=== PATIENT | male | born 1970 | race Two or more races ===

== ENCOUNTER 2016-08-26 04:23 | Emergency (ER) | payer SELFPAY ==
--- NOTE | 2016-08-26 06:57 | ER Document Report ---
ED General - General Information source: Patient TRAVEL OUTSIDE OF THE [place] IN LAST 30 DAYS: No - HPI Onset: Other - midnight Onset/Duration: Better Similar symptoms previously: Yes <BEATRICE BAGLEY - Last Filed: 08/26/16 07:32> <YONG MARTINEZ - Last Filed: 08/26/16 10:05> - General Chief Complaint: Dizziness Stated Complaint: NUMBNESS IN ARMS Notes: Patient is a 46-year-old male that presents to the emergency department today with complaints of an episode over night where he felt generally weak, numb, and dizzy. Patient describes feeling like he was nearly going to pass out with an elevated heart rate. Patient states he has not been able to sleep for the last few days, only a few hours a day. Patient states there is no reason why he cannot sleep, he just has been unable to fall asleep. Patient states he had a similar episode like this in the past approximately 2-3 months ago however this episode only lasted for approximately 2 hours. Patient states the episode today lasted from midnight until arrival here, approximately 6 hours. Patient denies chest pain, shortness of breath, abdominal pain, blood in his stool/urine , PE/DVT in the past, fevers, or cough. 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 denies: Fever EENT: No symptoms reported Cardiovascular: See HPI, Dizziness, Other - near-syncope. denies: Chest pain Respiratory: denies: Cough, Short of breath Gastrointestinal: See HPI, Vomiting. denies: Abdominal pain Genitourinary: No symptoms reported Male Genitourinary: No symptoms reported Musculoskeletal: No symptoms reported Skin: No symptoms reported Hematologic/Lymphatic: No symptoms reported Neurological/Psychological: No symptoms reported -: Yes All other systems reviewed and negative <BEATRICE BAGLEY - Last Filed: 08/26/16 07:32> Physical Exam <BEATRICE BAGLEY - Last Filed: 08/26/16 07:32> <YONG MARTINEZ - Last Filed: 08/26/16 10:05> - Vital signs Vitals: Temp Pulse Resp BP Pulse Ox 98.1 F 93 20 171/93 H 98 08/26/16 04:28 08/26/16 04:28 08/26/16 04:28 08/26/16 04:28 08/26/16 04:28 - Notes Notes: Physical Exam: General: Alert, appears well. HEENT: Normocephalic. Atraumatic. PERRL. Extraocular movements intact. Oropharynx clear. Neck: Supple. Non-tender. Respiratory: No respiratory distress. Clear and equal breath sounds bilaterally. Cardiovascular: Regular rate and rhythm, 2/6 systolic murmur over the apex. Abdominal: Normal Inspection. Non-tender. No distension. Normal Bowel Sounds. Back: Non-tender. No deformity or step off. Extremities: Moves all four extremities. Upper extremities: Normal inspection. Normal ROM. Lower extremities: Normal inspection. Non-tender. No edema. Normal ROM. Neurological: Normal cognition. AAOx4. Normal speech. Psychological: Normal affect. Normal Mood. Skin: Warm. Dry. Normal color. (YUDIBEATRICE) Course - Laboratory Result Diagrams: 08/26/16 07:00 08/26/16 07:00 <YUDIBEATRICE - Last Filed: 08/26/16 07:32> - Laboratory Result Diagrams: 08/26/16 07:00 08/26/16 07:00 <YONG MARTINEZ - Last Filed: 08/26/16 10:05> - Re-evaluation Re-evalutation: 08/26/16 09:53 Patient presents with episode of palpitations starting last night shortly after he laid down for sleep. Patient indicates it lasted all through the night. He said that he didn't have any shortness of breath but felt like maybe breathing a little faster than normal. The patient said he didn't have any chest pain with this just that his heart was racing. He felt lightheaded like he might pass out. All over. The patient has similar episode to this a couple months ago that lasted only 2 hours and went away. He did not seek medical attention for this. The patient currently is symptom free on arrival in emergency department. His exam is unremarkable. Medical decision making: Patient with episode of palpitations and lightheadedness. His exam is unremarkable. He does not use tobacco. No history of hypertension or hypercholesterolemia. Heart Score = 0. Patient low risk for major adverse coronary event. Patient low risk by well's criteria for PE and d-dimer negative area I spoke with Dr. Shah, [employer] [employer] consumer recruiter, who indicates that he will see patient in clinic for early follow-up and likely 30 day event monitor. I have explained this to patient and he acknowledges understanding and agrees with the plan. (YONG MARTINEZ) - Vital Signs Vital signs: Temp Pulse Resp BP Pulse Ox 98.1 F 74 20 143/87 H 98 08/26/16 04:28 08/26/16 08:38 08/26/16 09:01 08/26/16 09:01 08/26/16 09:01 - Laboratory Laboratory results interpreted by me: 08/26/16 07:00 Plt Count 143 L - EKG Interpretation by Me Additional EKG results interpreted by me: 08/26/16 09:58 Heart rate 80, normal sinus rhythm, normal axis, normal intervals, no ST elevations, narrow Q waves in leads V1 and V2, as interpreted by me. No old for comparison. (YONG MARTINEZ) Discharge <BEATRICE BAGLEY - Last Filed: 08/26/16 07:32> <YONG MARTINEZ - Last Filed: 08/26/16 10:05> - Discharge Clinical Impression: Palpitations, Lightheadedness Condition: Stable Disposition: HOME, SELF-CARE Instructions: Dizziness (OM) Additional Instructions: You can try Tylenol PM or melatonin for sleep regulation. Dr. Shah, the [facility], will see you in his clinic in the next few days for further cardiac evaluation. Please call him for appointment time - [phone]. Return to emergency department for chest pain, difficulty breathing, persistent palpitations, passing out episodes, or any other worsening or concerning symptoms. Palpitations (Irregular/Rapid Heartrate) Irregular or rapid heartbeat is called "palpitation." To diagnose the cause of palpitation, we have to "catch it in the act" with an EKG. Sinus Tachycardia: This is a rapid (but NORMAL) rhythm that can be due to fever, pain, anxiety, lack of sleep, over-exertion, or drugs. Cold medications, caffeine, and diet pills are particularly likely to cause tachycardia. Usually , all that's required is rest, reassurance, and avoiding caffeine, alcohol, nicotine, and unnecessary medicines. Paroxysmal Atrial Tachycardia (PAT): This abnormally rapid heartbeat is caused by a "short circuit" in the electrical system of the heart. It is not dangerous, unless other heart disease is present. These attacks of PAT may occur occasionally for years. Medication is available for treatment. Paroxysmal Atrial Fibrillation or Atrial Flutter: This is irregular electrical activity in the upper heart chamber. These abnormal rhythms often occur with valve disease or in hearts damaged by hardening of the arteries. These rhythms usually require further testing, for example a cardiac echo. Premature Beats: Extra beats occur more commonly after caffeine, nicotine , alcohol, cold pills, diet pills. Emotional stress or fatigue also provoke them. Extra beats are only dangerous when heart disease is present. They usually need no treatment. If they're frequent, or if evidence of heart disease develops, medication can be given to suppress them. If we were unable to "catch" the palpitations on EKG, you should try to get an EKG immediately if the symptoms begin again. Contact the physician at once if you develop persistent lightheadedness, shortness of breath, chest pain , or swelling of the ankles. Forms: Return to Work Referrals: ALMA PETIT MD [ACTIVE STAFF] - Follow up tomorrow (Call [phone], mention that you were seen here in the Emergency Department and that Dr. Shah had requested you call that number for appointment time to be seen in clinic for palpitations and near-syncope.) Print Language: Urdu Scribe Attestation: 08/26/16 10:05 I personally performed the services described in the documentation, reviewed and edited the documentation which was dictated to the scribe in my presence, and it accurately records my words and actions. (YONG MARTINEZ) Scribe Documentation - Scribe Written by Placido:: Placido Corbin, 08/26/2016 0739 acting as scribe for :: [place] <BEATRICE BAGLEY - Last Filed: 08/26/16 07:32>
[2016-08-26 07:20] LABS: ABSOLUTE LYMPHOCYTES (AUTO) 1.5 10^3/uL (0.5-4.7); ABSOLUTE MONOCYTES (AUTO) 0.6 10^3/uL (0.1-1.4); ABSOLUTE NEUT (AUTO) 5.4 10^3/uL (1.7-8.2); BASOPHILS % (AUTO) 0.5 % (0-2); EOSINOPHILS % (AUTO) 0.4 % (0-6); HEMATOCRIT 42.9 % (37.9-51.0); HEMOGLOBIN 14.8 g/dL (13.5-17.0); HGB HCT DIFFERENCE 1.5; LYMPHOCYTES % (AUTO) 19.6 % (13-45); MEAN CORPUSCULAR HEMOGLOBIN 29.9 pg (27.0-33.4); MEAN CORPUSCULAR HGB CONC 34.4 g/dL (32.0-36.0); MEAN CORPUSCULAR VOLUME 87 fl (80-97); MONOCYTES % (AUTO) 8.2 % (3-13); RED BLOOD COUNT 4.94 10^6/uL (4.35-5.55); RED CELL DISTRIBUTION WIDTH 12.7 % (11.5-14.0); SEGMENTED NEUTROPHILS % (AUTO) 71.3 % (42-78); WHITE BLOOD COUNT 7.5 10^3/uL (4.0-10.5)
[2016-08-26 07:40] LABS: ANION GAP 14 (5-19); BLOOD UREA NITROGEN 8 mg/dL (7-20); CALCIUM 9.4 mg/dL (8.4-10.2); CARBON DIOXIDE 28 mmol/L (22-30); CHLORIDE 100 mmol/L (98-107); GLUCOSE 96 mg/dL (75-110); POTASSIUM 3.9 mmol/L (3.6-5.0); SODIUM 141.6 mmol/L (137-145)
[2016-08-26 07:43] LABS: ALCOHOL < 10 mg/dL (NONE DETECTED)
--- NOTE | 2016-08-26 08:31 | EKG REPORT ---
SEVERITY:- ABNORMAL ECG - SINUS RHYTHM PROBABLE ANTEROSEPTAL INFARCT, AGE INDETERM : Confirmed by: Wily An MD 26-Aug-2016 08:31:14
[2016-08-26 10:17] VITALS: BP 145/92
== END 2016-08-26 10:17 | disposition home or self-care (01) ==
LOC: ER 04:23
DX: R00.2 Palpitations (principal); R42 Dizziness and giddiness; R20.0 Anesthesia of skin
CPT/HCPCS: 36415; 71020; 80048; 80307; 84484; 85025; 85379; 93005; 93010; 99285

== ENCOUNTER 2016-09-20 15:15 | Emergency (ER) | payer SELFPAY ==
[2016-09-20] MEDS ORDERED: MECLIZINE HCL 25 MG TABLET PO ONE (15:34)
[2016-09-20] MEDS ORDERED: DEXTROSE 5%-LACTATED RINGERS 1,000 ML IV ONE (15:35)
--- NOTE | 2016-09-20 15:41 | ER Document Report ---
ED Dizziness/Weakness - General Mode of Arrival: Medic Information source: Patient TRAVEL OUTSIDE OF THE [place] IN LAST 30 DAYS: No - HPI Patient complains to provider of: Dizziness Associated symptoms: Other - See above <DALLAS SERRANO - Last Filed: 09/20/16 15:49> <LYNNE CEJA - Last Filed: 09/20/16 17:27> - General Chief Complaint: Dizziness Stated Complaint: dizziness Time Seen by Provider: 09/20/16 15:20 Notes: Patient is a 46 year old male who presents to the emergency department complaining of dizziness onset at 1200 today. Patient reports that he was driving when he felt dizzy, his vision darkened, he experienced ringing in his ears, and throbbing in the back of his head. Patient states that he pulled over and went to [facility] where they had him turn his head which caused the dizziness to worsen, he was not given medication and was sent to the ED via EMS. Patient reports he is feeling better now. Patient was seen at this facility for inability to sleep and numbness a few weeks ago and was told to follow up with a plaster block layer which he did not do because he felt normal again. Per nurse, patient reported that he is a heavy alcohol drinker and he stopped drinking yesterday. (DALLAS SERRANO) - Related Data Allergies/Adverse Reactions: No Known Allergies Allergy (Unverified 08/26/16 04:28) Past Medical History - General Information source: Patient - Social History Smoking Status: Never Smoker Frequency of alcohol use: Heavy Family History: Reviewed & Not Pertinent Musculoskeltal Medical History: Reports Hx Gout - Immunizations Hx Diphtheria, Pertussis, Tetanus Vaccination: Yes <DALLAS SERRANO - Last Filed: 09/20/16 15:49> Review of Systems - Review of Systems Constitutional: No symptoms reported EENT: See HPI, Blurred vision - darkening, Other - ringing ears Cardiovascular: See HPI, Dizziness Respiratory: No symptoms reported Gastrointestinal: No symptoms reported Genitourinary: No symptoms reported Male Genitourinary: No symptoms reported Musculoskeletal: No symptoms reported Skin: No symptoms reported Hematologic/Lymphatic: No symptoms reported Neurological/Psychological: See HPI, Headaches -: Yes All other systems reviewed and negative <DALLAS SERRANO - Last Filed: 09/20/16 15:49> Physical Exam - Vital signs Interpretation: Normal - General General appearance: Appears well, Alert - HEENT Head: Normocephalic, Atraumatic - Respiratory Respiratory status: No respiratory distress Chest status: Nontender Breath sounds: Wheezing - mild Chest palpation: Normal - Cardiovascular Rhythm: Regular Heart sounds: Normal auscultation Murmur: No - Back Back: Normal, Nontender - Extremities General upper extremity: Normal inspection General lower extremity: Normal inspection - Neurological Neuro grossly intact: Yes Cognition: Normal Orientation: AAOx4 [place] Coma Scale Eye Opening: Spontaneous Jomar Coma Scale Verbal: Oriented Jomar Coma Scale Motor: Obeys Commands Jomar Coma Scale Total: 15 Speech: Normal - Psychological Associated symptoms: Normal affect, Normal mood - Skin Skin Temperature: Warm Skin Moisture: Dry Skin Color: Normal <DALLAS SERRANO - Last Filed: 09/20/16 15:49> Course <DALLAS SERRANO - Last Filed: 09/20/16 15:49> - Laboratory Result Diagrams: 09/20/16 16:13 09/20/16 16:13 <LYNNE CEJA - Last Filed: 09/20/16 17:27> - Re-evaluation Re-evalutation: 09/20/16 17:12 Patient reports he is feeling much better after the Antivert. He is able sit up and look about rapidly without any symptoms now. He does report that his blood pressure has been elevated for quite some time, including during the time when he quit drinking 4 several weeks. He does have a family history of high blood pressure. We will prescribe him medication for the vertigo and the blood pressure and encouraged follow-up with primary care provider. (LYNNE CEJA) - Vital Signs Vital signs: Temp Pulse Resp BP Pulse Ox 98.3 F 82 20 193/100 H 99 09/20/16 15:16 09/20/16 15:16 09/20/16 15:16 09/20/16 15:16 09/20/16 15:16 - Laboratory Laboratory results interpreted by me: 09/20/16 16:13 WBC 11.7 H Seg Neutrophils % 80.3 H Lymphocytes % 12.8 L Absolute Neutrophils 9.4 H Discharge <DALLAS SERRANO - Last Filed: 09/20/16 15:49> <LYNNE CEJA - Last Filed: 09/20/16 17:27> - Discharge Clinical Impression: Vertigo Condition: Stable Disposition: HOME, SELF-CARE Additional Instructions: Vertigo: You have experienced an episode of vertigo -- a whirling dizziness which may be accompanied by nausea and vomiting or staggering. Vertigo is often caused by an irritation of the inner ear, in which case it is called labyrinthitis. It can also be a symptom of a degenerating inner ear, nerve damage, or brain injury. Your physician has evaluated you to determine whether any further testing is necessary. Vertigo is often treated with dramamine or meclizine. These medications are helpful, but stronger medication may be needed if you are vomiting. Rest in bed. You should not drive or operate machinery until completely better. It may take one to three weeks for recovery. If there are new symptoms, such as decreased hearing or vision, severe headache, weakness or faintness, or confusion, call the physician. High Blood Pressure When your blood pressure was taken today it was elevated. Hypertension: The patient has been informed that they have Hypertension based on a blood pressure reading in the emergency department. I recommend that the patient call a primary care provider to arrange follow up for further management of Hypertension. Some simple things you can do to help are: If you have blood pressure medicine but aren't using it regularly, start taking it again. Get some aerobic exercise for at least 20 minutes on a daily basis. (See your doctor before beginning a new exercise program.) Eat a low-fat diet. Lose excess weight. Avoid salty foods and avoid adding salt to any of the foods you eat. Avoid diet pills, decongestants, "energizing" herbs, and other medicines that elevate blood pressure. Alcohol abuse will cause your blood pressure to go up. If left untreated, hypertension greatly enhances your risk for developing heart disease and strokes. Please don't ignore this problem. TAKE THE MEDICATION PRESCRIBED. REST. DO NOT DRINK ALCOHOL. DO NOT DRIVE, CLIMB LADDERS, OR WORK WITH MACHINERY UNTIL THE DIZZYNESS IS COMPLETELY RESOLVED. FOLLOW UP WITH A LOCAL MEDICAL DOCTOR TO MANAGE YOUR BLOOD PRESSURE AND VERTIGO SYMPTOMS. Prescriptions: Lisinopril 10 mg PO DAILY #30 tablet Meclizine HCl [Antivert 25 mg Tablet] 25 mg PO TID PRN #25 tablet PRN Reason: Referrals: GABRIEL CHIRINOS MD [Primary Care Provider] - Follow up as needed Scribe Attestation: 09/20/16 17:27 I personally performed the services described in the documentation, reviewed and edited the documentation which was dictated to the scribe in my presence, and it accurately records my words and actions. (LYNNE CEJA) Scribe Documentation - Scribe Written by Deboibwilliam:: dulce Elizabeth, 09/20/16, 1548 acting as scribe for :: [place] <DALLAS SERRANO - Last Filed: 09/20/16 15:49>
[2016-09-20] MEDS ORDERED: THIAMINE HCL INJ 200 MG/2 ML VIAL IV ONE (15:43)
[2016-09-20 16:22] LABS: ABSOLUTE BASOPHILS # (AUTO) 0.1 10^3/uL (0.0-0.2); ABSOLUTE LYMPHOCYTES (AUTO) 1.5 10^3/uL (0.5-4.7); ABSOLUTE MONOCYTES (AUTO) 0.7 10^3/uL (0.1-1.4); ABSOLUTE NEUT (AUTO) 9.4 10^3/uL (1.7-8.2); BASOPHILS % (AUTO) 0.6 % (0-2); EOSINOPHILS % (AUTO) 0.3 % (0-6); HEMATOCRIT 44.6 % (37.9-51.0); HGB HCT DIFFERENCE 0.4; LYMPHOCYTES % (AUTO) 12.8 % (13-45); MEAN CORPUSCULAR HGB CONC 33.7 g/dL (32.0-36.0); MEAN CORPUSCULAR VOLUME 86 fl (80-97); RED BLOOD COUNT 5.19 10^6/uL (4.35-5.55); RED CELL DISTRIBUTION WIDTH 12.4 % (11.5-14.0); SEGMENTED NEUTROPHILS % (AUTO) 80.3 % (42-78); WHITE BLOOD COUNT 11.7 10^3/uL (4.0-10.5)
[2016-09-20] MEDS ORDERED: THIAMINE HCL 100 MG in NORMAL SALINE 50 ML IV ONE (16:30)
[2016-09-20 16:45] LABS: ALANINE AMINOTRANSFERASE 32 U/L (21-72); ALBUMIN 4.2 g/dL (3.5-5.0); ALKALINE PHOSPHATASE 94 U/L (38-126); ANION GAP 11 (5-19); ASPARTATE AMINO TRANSFERASE 38 U/L (17-59); BILIRUBIN,DIRECT 0.3 mg/dL (0.0-0.4); BILIRUBIN,TOTAL 0.6 mg/dL (0.2-1.3); BLOOD UREA NITROGEN 11 mg/dL (7-20); CARBON DIOXIDE 26 mmol/L (22-30); CHLORIDE 102 mmol/L (98-107); CREATININE RESULT 0.82 mg/dL (0.52-1.25); GLUCOSE 105 mg/dL (75-110); MAGNESIUM 1.9 mg/dL (1.6-2.3); POTASSIUM 4.2 mmol/L (3.6-5.0); SODIUM 138.9 mmol/L (137-145); TOTAL PROTEIN 7.2 g/dL (6.3-8.2)
[2016-09-20 17:26] VITALS: BP 143/88
== END 2016-09-20 17:40 | disposition home or self-care (01) ==
LOC: ER 15:15
DX: R42 Dizziness and giddiness (principal); H53.8 Other visual disturbances; H93.19 Tinnitus, unspecified ear; R51 Headache; R06.2 Wheezing; I10 Essential (primary) hypertension; Z82.49 Family history of ischemic heart disease and other diseases of the circulatory system
CPT/HCPCS: 99284; 96374; 96375; 36415; 83735; 85025; 80053; 70450; J3411

== ENCOUNTER 2016-11-08 00:47 | Emergency (ER) | payer OTHER ==
[2016-11-08] MEDS ORDERED: NITROGLYCERIN 2% OINTMENT 1 GM PACKET TP ONE (02:03)
[2016-11-08 02:15] LABS: ALANINE AMINOTRANSFERASE 35 U/L (21-72); ALBUMIN 4.3 g/dL (3.5-5.0); ALKALINE PHOSPHATASE 91 U/L (38-126); ANION GAP 11 (5-19); ASPARTATE AMINO TRANSFERASE 27 U/L (17-59); BILIRUBIN,DIRECT 0.3 mg/dL (0.0-0.4); BILIRUBIN,TOTAL 0.5 mg/dL (0.2-1.3); BLOOD UREA NITROGEN 20 mg/dL (7-20); CALCIUM 9.2 mg/dL (8.4-10.2); CARBON DIOXIDE 22 mmol/L (22-30); CHLORIDE 104 mmol/L (98-107); CREATINE KINASE 165 U/L (55-170); CREATININE RESULT 0.94 mg/dL (0.52-1.25); GLUCOSE 97 mg/dL (75-110); POTASSIUM 4.2 mmol/L (3.6-5.0); TOTAL PROTEIN 8.2 g/dL (6.3-8.2)
[2016-11-08 02:17] LABS: ABSOLUTE BASOPHILS # (AUTO) 0.1 10^3/uL (0.0-0.2); ABSOLUTE EOSINOPHILS # (AUTO) 0.1 10^3/uL (0.0-0.6); ABSOLUTE LYMPHOCYTES (AUTO) 1.8 10^3/uL (0.5-4.7); ABSOLUTE MONOCYTES (AUTO) 0.7 10^3/uL (0.1-1.4); ABSOLUTE NEUT (AUTO) 7.3 10^3/uL (1.7-8.2); BASOPHILS % (AUTO) 0.6 % (0-2); EOSINOPHILS % (AUTO) 0.8 % (0-6); HEMOGLOBIN 13.9 g/dL (13.5-17.0); HGB HCT DIFFERENCE -0.3; MEAN CORPUSCULAR HEMOGLOBIN 28.3 pg (27.0-33.4); MEAN CORPUSCULAR HGB CONC 33.1 g/dL (32.0-36.0); MEAN CORPUSCULAR VOLUME 85 fl (80-97); RED BLOOD COUNT 4.92 10^6/uL (4.35-5.55); RED CELL DISTRIBUTION WIDTH 12.4 % (11.5-14.0); SEGMENTED NEUTROPHILS % (AUTO) 73.6 % (42-78)
--- NOTE | 2016-11-08 02:23 | ER Document Report ---
ED General - General Chief Complaint: Chest Pain Stated Complaint: HEART HURTS Time Seen by Provider: 11/08/16 01:48 Notes: Patient is a 46-year-old male who presents with complaint of chest pain. Pain is on the left side of the chest. That also causes some tingling sensation radiating into the left arm. Pain started tonight. He has never had this before. No difficulty breathing. No vomiting. No nausea. No trauma or injury to the chest. He says he does have some chronic shoulder pain. 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 He says the pain in the shoulder is chronic and nothing like the pain yesterday in his chest. Pain is not made worse with any palpation or movement. No history of coronary disease. No family history of heart attacks. He does have a history of hypertension. No history of diabetes TRAVEL OUTSIDE OF THE [place] IN LAST 30 DAYS: No - Related Data Allergies/Adverse Reactions: No Known Allergies Allergy (Verified 11/08/16 01:57) Past Medical History - Social History Smoking Status: Never Smoker Frequency of alcohol use: None Drug Abuse: None Family History: Reviewed & Not Pertinent - Past Medical History Cardiac Medical History: Reports: Hx Hypertension Renal/ Medical History: Denies: Hx Peritoneal Dialysis Musculoskeltal Medical History: Reports Hx Gout Surgical Hx: Negative - Immunizations Hx Diphtheria, Pertussis, Tetanus Vaccination: Yes Review of Systems - Review of Systems Notes: My Normal Review Basic REVIEW OF SYSTEMS: CONSTITUTIONAL : Denies fever, chills, or sweats. Denies recent illness. EENT: Denies eye, ear, throat, or mouth pain or symptoms. Denies nasal or sinus congestion. CARDIOVASCULAR: Has chest pain RESPIRATORY: Denies cough, cold, or chest congestion. Denies shortness of breath, difficulty breathing, or wheezing. GASTROINTESTINAL: Denies abdominal pain. Denies nausea, vomiting, or diarrhea. Denies constipation. Last BM: MUSCULOSKELETAL: Denies neck or back pain or joint pain or swelling. SKIN: Denies rash or skin lesions. NEUROLOGICAL: Denies altered mental status or loss of consciousness. Denies headache. Denies weakness or paralysis or loss of use of either side. Denies problems with gait or speech. Denies sensory or motor loss. ALL OTHER SYSTEMS REVIEWED AND NEGATIVE. Physical Exam - Vital signs Vitals: Temp Pulse Resp BP Pulse Ox 98.0 F 82 16 159/94 H 99 06/26/17 00:55 11/08/16 00:55 11/08/16 00:55 11/08/16 00:55 11/08/16 00:55 - Notes Notes: General Appearance: Well nourished, alert, cooperative, no acute distress, no obvious discomfort. Vitals: reviewed, See vital signs table. Head: no swelling or tenderness to the head Eyes: PERRL, EOMI, Conjuctiva clear Mouth: No decreasd moisture Throat: No tonsillar inflammation, No airway obstruction, No lymphadenopathy Lungs: No wheezing, No rales, No rhonci, No accessory muscle use, good air exchange bilaterally. Heart: Normal rate, Regular rythm, No murmur, no rub Chest wall: No reproducible pain to palpation of the anterior chest wall. Pain in the chest is not made worse with any movement of the shoulder or with pushing against resistance. Abdomen: Normal BS, soft, No rigidity, No abdominal tenderness, No guarding, no rebound, no abdominal masses, no organomegaly Extremities: strength 5/5 in all extremities, good pulses in all extremities, no swelling or tenderness in the extremities, no edema. Skin: warm, dry, appropriate color, no rash Neuro: speech clear, oriented x 3, normal affect, responds appropriately to questions. Course - Vital Signs Vital signs: Temp Pulse Resp BP Pulse Ox 98.0 F 82 20 106/75 97 11/08/16 00:55 11/08/16 00:55 11/08/16 05:00 11/08/16 05:00 11/08/16 05:00 - Laboratory Result Diagrams: 11/08/16 01:23 11/08/16 01:23 - EKG Interpretation by Me Additional EKG results interpreted by me: 11/08/16 02:19 EKG is reviewed and interpreted by me. EKG shows normal sinus rhythm with a rate of [address] segment elevation or depression. No ischemic T-wave inversions. NJ interval, QRS duration, QTc intervals are within normal range. Old EKG for comparison is from August 26, 2016. - Transfer of Care Notes: 11/08/16 05:48 Patient is chest pain-free. His EKG is negative. His troponin and delta troponin are negative. I did talk to the patient about admission versus follow- up outpatient with the field inspector. Patient does have a heart score of 3. Patient says that he prefers to follow-up outpatient with field inspector. I will discharge him home with a prescription for aspirin as well as nitro. I informed him that if he has any recurrent chest pain he should take nitro and come back to the ER immediately. Patient is understanding of this and agrees with plan. Dictation of this chart was performed using voice recognition software; therefore, there may be some unintended grammatical errors. Discharge - Discharge Clinical Impression: Chest pain Qualifiers: Chest pain type: unspecified Qualified Code(s): R07.9 - Chest pain, unspecified Condition: Good Disposition: HOME, SELF-CARE Additional Instructions: CHEST PAIN OF UNCLEAR CAUSE: The exact cause of your chest pain isn't clear. Fortunately, there is no evidence of a dangerous medical condition. Further testing may be required to find the source of the pain. Most often, we find that this pain is coming from the chest wall -- the muscles or rib joints in the chest. But chest pain can come from the lung and lung lining, the esophagus, the heart valves or heart lining, and even the stomach or gallbladder. Rest. Eat lightly until the pain is gone. We may prescribe medicine for pain and inflammation. You should call the physician immediately if the pain radiates to the shoulder, jaw or arms; if you start to run a fever or develop a cough; or if you develop shortness of breath, or other new or alarming symptoms. NORMAL EXAM AND WORKUP: At this time, your examination and workup show no significant abnormality. No significant abnormal physical findings were noted. All laboratory, EKG, and imaging (x-ray) studies that were ordered show no significant abnormality. Although your examination and all studies that were ordered showed no significant abnormal finding, there are no examinations and no studies that are 100% accurate. There is always the possibility that some abnormality could exist and not be detected with physical examination or within the limits and capabilities of laboratory and other studies. You should return or follow up as you were instructed on your visit today for further evaluation if your symptoms do not resolve. ASPIRIN: Aspirin has been shown to have a beneficial effect on blood circulation by reducing the clotting effect of platelets in the blood. These beneficial effects can be achieved by taking just a single baby (81 mg) aspirin a day. It is recommended that any person over the age of forty take a single baby aspirin every day for heart and brain circulation, unless you are allergic to aspirin or have some significant bleeding disorder. It is strongly recommended that people who have proven cardiac or blood circulation disturbances should take a baby aspirin every day. NITRATES: Nitroglycerin and related longer-acting nitrate medications are used to prevent or treat attacks of angina. These medicines dilate blood vessels, decreasing the work of the heart, and improving its supply of oxygen. Many different forms are available, including sublingual tablets (used under the tongue), sprays, skin patches, and long-acting pills. If the particular form of medication you have been given is not working well for you, contact your doctor. Long-acting forms: Take exactly as prescribed. Sudden stopping of medication can provoke increased attacks. Sublingual tabs or spray: A headache will usually occur with use. Sit or lie while waiting for the pain to go away. If angina doesn't respond to three doses (five minutes apart), call for emergency assistance. FOLLOW-UP CARE: If you have been referred to a physician for follow-up care, call the physician s office for an appointment as you were instructed or within the next two days. If you experience worsening or a significant change in your symptoms, notify the physician immediately or return to the Emergency Department at any time for re-evaluation. Please call Dr. Perkins, field inspector, to make a close follow up appointment. He will evaluate and potentially set you up for a stress test to further evaluate your heart. Please avoid exertional activities. Please take 324mg of aspirin every day. Also, I have prescribed nitro. If you are having chest pain you must place a nitro tablet under your tongue and return to the ER immediately for reevaluation. Prescriptions: Nitroglycerin 0.3 mg SL Q5MP PRN #15 tab.subl PRN Reason: chest pain Aspirin [Aspirin 325 mg Tablet] 325 mg PO DAILY PRN #30 tab PRN Reason: Referrals: DAVID PERKINS MD [ACTIVE STAFF] - 11/09/16
[2016-11-08 02:27] LABS: CREATINE KINASE MB 1.81 ng/mL (<4.55)
[2016-11-08 02:28] LABS: TROPONIN I < 0.012 ng/mL
--- NOTE | 2016-11-08 02:30 | RADIOLOGY REPORT (SQ) ---
EXAM DESCRIPTION: CHEST SINGLE VIEW COMPLETED DATE/TIME: 11/08/2016 2:20 am REASON FOR STUDY: chest pain COMPARISON: 4.13.17 EXAM PARAMETERS: NUMBER OF VIEWS: One view. TECHNIQUE: Single frontal radiographic view of the chest acquired. RADIATION DOSE: NA LIMITATIONS: None. FINDINGS: LUNGS AND PLEURA: No opacities, masses or pneumothorax. No pleural effusion. MEDIASTINUM AND HILAR STRUCTURES: No masses. Contour normal. HEART AND VASCULAR STRUCTURES: Heart normal in size. Normal vasculature. BONES: No acute findings. HARDWARE: None in the chest. OTHER: No other significant finding. IMPRESSION: NO ACUTE RADIOGRAPHIC FINDING IN THE CHEST. TECHNICAL DOCUMENTATION: JOB ID: [id number]
[2016-11-08 05:46] VITALS: BP 111/79
--- NOTE | 2016-11-08 08:43 | EKG REPORT ---
SEVERITY:- NORMAL ECG - SINUS RHYTHM : Confirmed by: Nadya Bruner 08-Nov-2016 08:41:59
== END 2016-11-08 05:50 | disposition home or self-care (01) ==
LOC: ER 00:47
DX: R07.9 Chest pain, unspecified (principal); R20.2 Paresthesia of skin; M25.519 Pain in unspecified shoulder; G89.29 Other chronic pain; I10 Essential (primary) hypertension
CPT/HCPCS: 36415; 71010; 80053; 82550; 82553; 84484; 85025; 93005; 93010; 99285

== ENCOUNTER 2016-11-23 17:50 | Emergency (ER) | payer SELFPAY ==
--- NOTE | 2016-11-23 18:27 | ER Document Report ---
ED Snake Bite - General Mode of Arrival: Ambulatory Information source: Patient TRAVEL OUTSIDE OF THE [place] IN LAST 30 DAYS: No - HPI Onset: Just prior to arrival - General Chief Complaint: Insect Bite Stated Complaint: POSSIBLE SNAKE BITE Time Seen by Provider: 11/23/16 18:15 Notes: Patient is a 46-year-old male who presents to the emergency department today secondary to a possible snake bite. Patient states he was reaching in his toolbox when he felt something on his finger. Patient states he pulled his hand out of the toolbox and there was a very small snake, approximately 3 inches long attached to his right index finger. Patient denies any symptoms, he just states that his right arm "feels weird" but he adds "I think it just might be nerves". (BEATRICE BAGLEY) - Related Data Allergies/Adverse Reactions: No Known Allergies Allergy (Verified 11/08/16 01:57) Past Medical History - General Information source: Patient - Social History Smoking Status: Never Smoker Cigarette use (# per day): No Frequency of alcohol use: None Drug Abuse: None Lives with: Family Family History: Reviewed & Not Pertinent - Past Medical History Cardiac Medical History: Reports: Hx Hypertension Musculoskeltal Medical History: Reports Hx Gout Surgical Hx: Negative - Immunizations Hx Diphtheria, Pertussis, Tetanus Vaccination: Yes Review of Systems - Review of Systems Constitutional: No symptoms reported EENT: No symptoms reported Cardiovascular: No symptoms reported Respiratory: No symptoms reported Gastrointestinal: No symptoms reported Genitourinary: No symptoms reported Male Genitourinary: No symptoms reported Musculoskeletal: No symptoms reported Skin: See HPI, Other - possible snake bite to right index finger Hematologic/Lymphatic: No symptoms reported Neurological/Psychological: No symptoms reported -: Yes All other systems reviewed and negative Physical Exam - Vital signs Vitals: Temp Pulse Resp BP Pulse Ox 98.2 F 98 18 173/96 H 98 11/23/16 17:53 11/23/16 17:53 11/23/16 17:53 11/23/16 17:53 11/23/16 17:53 - Notes Notes: Physical Exam: General: Alert, appears well. HEENT: Normocephalic. Atraumatic. PERRL. Extraocular movements intact. Oropharynx clear. Neck: Supple. Non-tender. Respiratory: No respiratory distress. Clear and equal breath sounds bilaterally. Cardiovascular: Regular rate and rhythm. Abdominal: Normal Inspection. Non-tender. No distension. Normal Bowel Sounds. Back: Non-tender. No deformity or step off. Extremities: Moves all four extremities. Upper extremities: Normal inspection. Normal ROM. Lower extremities: Normal inspection. No edema. Normal ROM. No puncture wounds, swelling, tenderness, or erythema to index finger. Neurological: Normal cognition. AAOx4. Normal speech. Psychological: Normal affect. Normal Mood. Skin: Warm. Dry. Normal color. (BEATRICE BAGLEY) Course - Re-evaluation Re-evalutation: 11/23/16 19:32 Patient with no evidence for venomous snake injury. Patient brought the snake with him and it appears to be garter snake. No puncture wounds noted. No erythema, warmth, or tenderness. Patient has been observed with no further development of symptoms. Stable for discharge. Follow-up with PMD as needed. ( MAC NAPIER) - Vital Signs Vital signs: Temp Pulse Resp BP Pulse Ox 98.2 F 89 16 149/81 H 99 11/23/16 17:53 11/23/16 21:04 11/23/16 21:04 11/23/16 21:04 11/23/16 21:04 Discharge - Discharge Clinical Impression: Bite, snake, non-venomous Qualifiers: Encounter type: initial encounter Qualified Code(s): W59.11XA - Bitten by nonvenomous snake, initial encounter Condition: Stable Disposition: HOME, SELF-CARE Instructions: Snakebites ([facility]) Additional Instructions: If you get any redness or pain, please return immediately. Forms: Return to Work Scribe Attestation: 11/23/16 23:47 I personally performed the services described in the documentation, reviewed and edited the documentation which was dictated to the scribe in my presence, and it accurately records my words and actions. (MAC NAPIER) Scribe Documentation - Scribe Written by Scribe:: Placido Corbin, 11/23/2016 2144 acting as scribe for :: Elise
[2016-11-23 21:05] VITALS: BP 149/81
== END 2016-11-23 21:05 | disposition home or self-care (01) ==
LOC: ER 17:50
DX: S61.250A Open bite of right index finger without damage to nail, initial encounter (principal); W59.11XA Bitten by nonvenomous snake, initial encounter; I10 Essential (primary) hypertension
CPT/HCPCS: 99283